=== PATIENT | male | born 2000 | race Caucasian/White ===

== ENCOUNTER 2023-09-06 18:40 | Emergency (ER) | payer SELFPAY ==
[2023-09-06 18:49] VITALS: BP 122/72; PULSE 72; RESP 18; TEMP 98.3; BMI 25.5
[2023-09-06] MEDS ORDERED: IBUPROFEN 600 MG TABLET (FP) PO ONE (19:28)
[2023-09-06] MEDS: IBUPROFEN 600 MG TABLET (FP) PO ONE (19:28)
== END 2023-09-06 22:42 | disposition home or self-care (01) ==
LOC: JER 18:40 → JERFT 18:40
DX: M79.651 Pain in right thigh (principal); W14.XXXA Fall from tree, initial encounter
CPT/HCPCS: 72131-TC; 73552-TC-RT-FY; 99284-25